=== PATIENT | female | born 2000 | race Hispanic/Latino ===

== ENCOUNTER 2022-01-09 10:02 | Emergency (ER) | payer OTHER, BC ==
[~2022-01-09] VITALS: Ht 154.9 cm; Wt 2.0 kg
[2022-01-09] MEDS ORDERED: CEPHALEXIN500 M1 PO (13:23)
== END 2022-01-09 13:46 | disposition home or self-care (01) ==
LOC: ED 10:02
DX: S50.851A Superficial foreign body of right forearm, initial encounter (principal); W45.8XXA Other foreign body or object entering through skin, initial encounter
CPT/HCPCS: 10120; 76882; 99283-25; A9270